=== PATIENT | male | born 1990 | race Hispanic/Latino ===

== ENCOUNTER 2017-09-26 23:58 | Emergency (ER) | payer SELFPAY ==
--- NOTE | 2017-09-27 00:10 | ED.PDOC ---
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 Timing/Duration: 1-3 hours Severity: moderate Improving Factors: nothing Worsening Factors: nothing Associated Symptoms: shortness of breath Allergies/Adverse Reactions: Allergies NO KNOWN ALLERGY Allergy (Verified 09/27/17 00:11) Home Medications: Ambulatory Orders NK [NK] 09/27/17 Review of Systems - Review of Systems Constitutional: States: no symptoms reported EENTM: States: no symptoms reported Respiratory: States: no symptoms reported Cardiology: States: see HPI, other - left sided chest cramps Gastrointestinal/Abdominal: States: no symptoms reported Genitourinary: States: no symptoms reported Musculoskeletal: States: no symptoms reported Skin: States: no symptoms reported Neurological: States: no symptoms reported Endocrine: States: no symptoms reported All other Systems: Reviewed and Negative, No Change from Baseline Past Medical History (General) - Patient Medical History Hx Seizures: No Hx Asthma: No Hx Cardiac Disorders: No Surgical History: no surgical history - Social History Hx Tobacco Use: No Hx Chewing Tobacco Use: No Hx Alcohol Use: No Hx Substance Use: No Hx Depression: No Feels Threatened In a Relationship: No Hx Physical Abuse: No Hx Emotional Abuse: No Hx Suspected Abuse: No - Activities of Daily Living Patient Lives Alone: No Family Medical History - Family History Father Family History: Unknown Living Status: Still Living Physical Exam - Physical Exam General Appearance: Alert, Comfortable, No apparent distress Eye Exam: bilateral normal Ears, Nose, Throat: hearing grossly normal, normal ENT inspection, normal pharynx Neck: non-tender, full range of motion, supple, normal inspection Respiratory: chest non-tender, lungs clear, normal breath sounds Cardiovascular/Chest: normal peripheral pulses, regular rate, rhythm, no murmur Peripheral Pulses: radial,right: 2+, radial,left: 2+ Gastrointestinal/Abdominal: normal bowel sounds, non tender, soft Back Exam: normal inspection, no CVA tenderness, no vertebral tenderness Extremity: non-tender, no pedal edema, no calf tenderness Neurologic: alert, oriented x 3 Skin Exam: normal color, warm/dry Progress - Progress Progress: 09/27/17 00:49 Vital Signs - 8 hr 09/27/17 00:08 Temperature 96.8 F L Pulse Rate [ 62 Right] Respiratory 16 Rate Blood Pressure 119/79 [Left Arm] O2 Sat by Pulse 98 Oximetry 09/27/17 01:29 Patient was sound asleep in the room;Discuss test result that he is low on potassium advised to eat bananas and drink orange juice if working outside and weather hot - Results/Orders Results/Orders: 09/27/17 00:11 IV Care:Saline Lock per Protoc QSHIFT 09/27/17 00:12 URINALYSIS Stat 09/27/17 00:15 EKG STAT Laboratory Results - last 24 hr 09/27/17 00:11 WBC 8.6 RBC 5.13 Hgb 16.0 Hct 46.1 MCV 89.9 MCH 31.1 H MCHC 34.6 RDW 14.0 Plt Count 135 MPV 11.9 H Absolute Neuts (auto) 4.60 Absolute Lymphs (auto) 2.80 Absolute Monos (auto) 0.80 Absolute Eos (auto) 0.20 Absolute Basos (auto) 0.10 Neutrophils % 53.9 Lymphocytes % 33.0 Monocytes % 9.7 H Eosinophils % 2.8 Basophils % 0.6 PT 11.8 INR 1.020 PTT (SP) 31.9 Sodium 139 Potassium 3.3 L Chloride 103 Carbon Dioxide 29 Anion Gap 10.3 L BUN 17 Creatinine 0.83 BUN/Creatinine Ratio 20.5 H Random Glucose 82 Serum Osmolality 278.2 Calcium 9.2 Magnesium 1.9 Total Bilirubin 0.6 Direct Bilirubin < 0.1 Indirect Bilirubin 0.5 AST 21 ALT 20 Alkaline Phosphatase 51 Creatine Kinase 212 H* CK-MB (CK-2) 1.9 CK-MB (CK-2) % Not Reportable Troponin I < 0.02 Serum Total Protein 7.1 Albumin 4.3 - EKG/XRAY/CT EKG: Sinus, no ST T wave changes Comments: HR-56 XRAY: chest - no acute pleural/parenchymal changes Departure - Departure Clinical Impression: Cramps, muscle, general, Hypokalemia Time of Disposition: 01:25 Disposition: Discharge to Home or Self Care Condition: Good Departure Forms: ED Discharge - Pt. Copy, Patient Portal Self Enrollment Instructions: Muscle Spasms (DC) Diet: other - drink extra fluids when working outside Home Medications: Ambulatory Orders NK [NK] 09/27/17 Additional Instructions: Return to Emergency room as needed Need to sign up with primary [phone]
[2017-09-27] MEDS ORDERED: LACTATED RINGERS 1,000 ML IVS ONE (00:11)
[2017-09-27 00:12] VITALS: O2SAT 98
--- NOTE | 2017-09-27 00:30 | RAD ---
PROCEDURE: XR CHEST 1 VIEW HISTORY: pain /sob COMPARISON: None TECHNIQUE: Single projection of the chest was done. FINDINGS: The lung sánchez are well inflated . There are no discrete airspace infiltrates, pneumothoraces or pleural effusions. The pulmonary vascularity is normal. The cardiomediastinal silhouette is unremarkable for patient's age and sex. IMPRESSION: There is no acute pleural-parenchymal process seen in the imaged lung sánchez. Location of Interpretation: Teleradiology Electronically signed by: Leobardo Rodarte MD 09/27/2017 12:29 AM CDT Workstation: [id number]
[2017-09-27] MEDS ORDERED: POTASSIUM CHLORIDE 20 MEQ TAB PO ONE (00:52)
[2017-09-27 01:40] VITALS: BP 112/69; TEMP 97.9
== END 2017-09-27 01:40 | disposition home or self-care (01) ==
LOC: ER 23:58
DX: R25.2 Cramp and spasm (principal); E87.6 Hypokalemia; R06.02 Shortness of breath
CPT/HCPCS: 36415; 71045; 80048; 80076; 82550; 82553; 84484; 85025; 85610; 85730; 93005; J7120